=== PATIENT | male | born 1990 | race Asian ===

== ENCOUNTER 2018-06-24 04:12 | Emergency (ER) | payer SELFPAY ==
[~2018-06-24] VITALS: Ht 175.3 cm; Wt 68.0 kg
[2018-06-24 04:14] VITALS: BP 134/96
[2018-06-24 04:25] VITALS: BP 129/83
== END 2018-06-24 04:25 ==
LOC: MED 04:12
DX: F10.129 Alcohol abuse with intoxication, unspecified (principal); Z02.89 Encounter for other administrative examinations; V49.40XA Driver injured in collision with unspecified motor vehicles in traffic accident, initial encounter; Y93.89 Activity, other specified; Y92.89 Other specified places as the place of occurrence of the external cause; Y99.8 Other external cause status
CPT/HCPCS: 99283